=== PATIENT | female | born 1960 | race Hispanic/Latino ===

== ENCOUNTER 2023-03-08 10:43 | Outpatient (CLI) | payer MEDICAID, SELFPAY | END 2023-03-08 10:44 | disposition home or self-care (01) | LOC: ANHAUDIO 10:44 | PROVIDERS: PCP Registered Nurse; Visit Provider Registered Nurse | DX: H90.3 Sensorineural hearing loss, bilateral (principal); H93.13 Tinnitus, bilateral | CPT/HCPCS: 92553; 92555; 92567 ==